=== PATIENT | male | born 1990 | race Caucasian/White ===

== ENCOUNTER 2019-07-23 20:45 | Emergency (ER) | payer MEDICAID ==
[~2019-07-23] VITALS: Ht 170.2 cm; Wt 67.6 kg
[2019-07-23 20:50] VITALS: BP 113/73
--- NOTE | 2019-07-23 20:57 | NUR ---
PT AMBULATED TO BED #7
--- NOTE | 2019-07-23 21:02 | NUR ---
Dr. Fuchs examining patient.
--- NOTE | 2019-07-23 21:04 | NUR ---
PT C/O COLD SYMTPOMS X3 WEEKS. PROGRESSIVE WORSENING COUGH X1 WEEK. CHEST PAIN PROVOKED BY COUGH. PT STATES CHILLS X2 WEEKS. NAUSEA/DIARRHEA X3 DAYS W/ INTERMITTENT ABD CRAMPING. LUNG SOUNDS CLEAR, O2 SAT 99% ROOM AIR. PT SITTING IN BED WITH GIRLFRIEND AT BEDSIDE. VSS AT THIS TIME. MEDHX: DENIES ALLERGIES: DENIES
[2019-07-23 21:11] VITALS: BP 113/73
--- NOTE | 2019-07-23 21:11 | NUR ---
Patient discharged with v/s stable. Written and verbal after care instructions given and explained. Patient alert, oriented and verbalized understanding of instructions. Ambulatory with to home. All questions addressed prior to discharge. ID band removed. Patient advised to follow up with PMD. Rx of PREDNISONE, MOTRIN, AND ZOFRAN given. Patient educated on indication of medication including possible reaction and side effects. Opportunity to ask questions provided and answered.
== END 2019-07-23 21:11 | disposition home or self-care (01) ==
LOC: MED 20:45
DX: J06.9 Acute upper respiratory infection, unspecified (principal)
CPT/HCPCS: 99283